=== PATIENT | male | born 1990 | race Caucasian/White ===

== ENCOUNTER 2023-09-04 16:30 | Emergency (ER) | payer OTHER, SELFPAY ==
--- NOTE | ~2023-09-04 | XR_ITS ---
EXAMINATION: XR finger 2nd LT min 2V INDICATION: Right second finger pain and laceration TECHNIQUE: Three views of the right second finger are obtained. COMPARISON: None available FINDINGS: Bone alignment is normal. There is no fracture. The joint spaces are normal. There is soft tissue swelling of the finger. No radiopaque foreign body is identified. IMPRESSION: 1. No acute osseous abnormality. Reviewed, dictated and finalized at location F. ON PICTURE SET WORKER
[2023-09-04 16:31] VITALS: BP 162/114; PULSE 80; RESP 20; TEMP 36.4; O2SAT 99
--- NOTE | 2023-09-04 16:39 | ED.WOUNDLAC ---
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 Tetanus UTD as of a few years ago. Denies numbness/tingling. No other injuries. Related Data Allergies Allergy/AdvReac Type Severity Reaction Status Date / Time red dye Allergy Nausea and Verified 09/04/23 16:31 Vomiting Review of Systems Integumentary/Breasts: Comments: laceration L 2nd digit PMFSH Family History Family History Mother Family history of multiple sclerosis Father Hypertension Asthma Family history of elevated blood lipids Family history of diabetes mellitus in first degree relative Social History Social History Smoking end date: 10/16/12 Exam Const: General: healthy appearing and no acute distress Nutritional Appearance: well nourished Resp: Effort & Inspection: normal respiratory effort Auscultation: clear to auscultation bilaterally Cardio: Rate: regular rate Rhythm: regular rhythm Skin: Wounds: wounds noted (1.5cm laceration to L 2nd finger extensor surface between DIP/PIP joints) Course Vital Signs Vital signs: Vital Signs Temperature 97.6 F 09/04/23 16:31 Pulse Rate 80 09/04/23 16:31 Respiratory Rate 20 09/04/23 16:31 Blood Pressure 162/114 H 09/04/23 16:31 Pulse Oximetry 99 09/04/23 16:31 Oxygen Delivery Room Air 09/04/23 16:31 Temperature 97.6 F 09/04/23 16:31 Pulse Rate 80 09/04/23 16:31 Respiratory Rate 20 09/04/23 16:31 Blood Pressure 162/114 H 09/04/23 16:31 Pulse Oximetry 99 09/04/23 16:31 Oxygen Delivery Room Air 09/04/23 16:31 Procedures Laceration Laceration 1: Date: 09/04/23 Time: 18:00 Site: hand Side (If applicable): left (2nd digit) Size (cm): 1.5 Description: linear Depth: simple, single layer Local Anesthetic: lidocaine 1% Amount of anesthesia used (mL): 5 Pre-repair: wound explored, irrigated and irrigated extensively ====== Skin Level ====== Skin layer closed with: nylon Size (cm): 4-0 Number of sutures: 3 Technique: simple, interrupted ====== Subcutaneous Layer ====== ====== Muscle Layer ====== ====== Tendon Layer ====== MDM - Wound/Laceration MDM Narrative Medical decision making narrative: X-ray negative. Laceration repaired w/o complications. Tetanus UTD. Given wound care instructions and reasons to return. Medical Records Attestation: I reviewed the patient's medical records. Imaging Data Attestation: I personally reviewed and interpreted this imaging study as follows: Radiologist's impression: ITS Impressions Finger X-Ray 09/04/23 16:46 IMPRESSION: 1. No acute osseous abnormality. Discharge Plan Discharge Clinical Impression: Laceration of finger of left hand Qualifiers: Encounter type: initial encounter Finger: index finger Damage to nail status: without damage Foreign body presence: without foreign body Qualified Code(s): S61.211A - Laceration without foreign body of left index finger without damage to nail, initial encounter Patient Disposition: Home, Self-Care Condition: Stable Instructions: Antibiotic Form, Care For Your Stitches (ED), Laceration (ED) Additional Instructions: Return to the ED or visit an urgent care or your PCP for follow-up and wound check/suture removal in 7 days. Keep the wound dry for 24 hours. You may remove the bandage after 24 hours and wash with simple soap and water, but do not scrub. Return to the ED if you experience uncontrol
== END 2023-09-04 18:39 | disposition home or self-care (01) ==
PROVIDERS: Emergency Provider Physician Assistant
DX: S61.211A Laceration without foreign body of left index finger without damage to nail, initial encounter (principal); W29.8XXA Contact with other powered hand tools and household machinery, initial encounter
CPT/HCPCS: 12001; 73140; 99283

== ENCOUNTER 2023-09-27 11:56 | Outpatient (CLI) | payer OTHER, SELFPAY ==
--- NOTE | ~2023-09-27 | XR_ITS ---
Clinical Indication: Chest pain PA and lateral views of the chest: Comparison: None Findings: The lungs are clear, without evidence of focal consolidation or pleural effusion. Cardiome diastinal silhouette is within normal limits. Bones and soft tissues are unremarkable. Impression: Normal chest. Reviewed, dictated and finalized at location . CENTER TRAINER Impression: Normal chest.
== END 2023-09-27 11:57 | disposition home or self-care (01) ==
PROVIDERS: PCP Emergency Medicine; Visit Provider Emergency Medicine
DX: R07.9 Chest pain, unspecified (principal); Z87.891 Personal history of nicotine dependence
CPT/HCPCS: 71046

== ENCOUNTER 2023-10-07 20:50 | Emergency (ER) | payer OTHER, SELFPAY ==
--- NOTE | ~2023-10-07 | XR_ITS ---
XR chest 2V DATE: 10/07/2023 23:57 INDICATION: Chest pain during. History of anxiety. TECHNIQUE: PA and lateral views COMPARISON: 09/27/2023 AP and lateral chest FINDINGS: Normal heart size. No hilar or mediastinal enlargement. No pulmonary infiltrate or consolid ation, pleural effusion or pulmonary vascular congestion or pneumothorax is detected. IMPRESSION: No active cardiopulmonary disease Reviewed, dictated and finalized at location A. PRESS OPERATOR
[2023-10-07 21:34] VITALS: BP 158/96; PULSE 74; RESP 16; TEMP 37; O2SAT 100
--- NOTE | 2023-10-08 00:15 | ECG_ITS ---
Measurements Intervals [place] Rate: 60 P: 62 PA: 161 QRS: 64 QRSD: 86 T: 52 QT: 384 QTc: 386 Interpretive Statements SINUS RHYTHM WITH SINUS ARRHYTHMIA NO PREVIOUS ECG AVAILABLE FOR COMPARISON Electronically Signed On 10-08-2023 17:01:52 FLATBED DRIVER by Mila Duggan M.D.
[2023-10-08 00:28] LABS: Alanine Aminotransferase 52 U/L (6-50); Albumin Level 4.5 g/dL (3.5-5.1); Alkaline Phosphatase 58 U/L (38-126); Anion Gap 10 mmol/L (8-16); Aspartate Amino Transferase 43 U/L (17-59); Bilirubin,Total 0.5 mg/dL (0.2-1.3); Blood Urea Nitrogen 13 mg/dL (9-20); Calcium 9.4 mg/dL (8.4-10.2); Carbon Dioxide 22 mmol/L (22-30); Chloride 105 mmol/L (98-107); Estimated CRCL calculation 193 ml/min; Estimated Glomerular Filt Rate > 60; Glucose 88 mg/dL (65-110); Lipase 35 U/L (23-300); Potassium 3.9 mmol/L (3.4-5.0); Sodium 137 mmol/L (137-145)
[2023-10-08 00:29] LABS: Basophils Percent Auto 0.4 % (0.2-1.2); Eosinophils Absolute Auto 0.2 K/mm3 (0-0.3); Eosinophils Percent Auto 1.5 % (0-4.4); Hemoglobin 12.7 g/dL (14.0-18.0); Immature Granulocyte Absolute 0.02 K/mm3 (0.00-0.031); Immature Granulocyte Percent A 0.2 % (0-0.5); Lymphocytes Absolute Auto 2.99 K/mm3 (0.9-3.2); Lymphocytes Percent Auto 30.4 % (18.3-44.2); Mean Corpuscular HGB Conc 33.4 g/dl (32-36); Mean Corpuscular Hemoglobin 31.1 pg (26-34); Mean Corpuscular Volume 92.9 fl (80-100); Mean Platelet Volume 9.5 fl (7.4-10.4); Monocytes Absolute Auto 0.9 K/mm3 (0.1-0.6); Monocytes Percent Auto 8.8 % (2.6-8.5); Neutrophils Absolute Auto 5.8 K/mm3 (1.3-6.7); Neutrophils Percent Auto 58.7 % (45.5-73.1); Platelet Count Result 256 k/mm3 (150-375); Red Blood Count 4.09 M/mm3 (4.6-6.20); Red Cell Distribution Width 11.7 % (11.5-14.5); White Blood Count 9.8 K/mm3 (4.5-10.0)
[2023-10-08 00:43] LABS: Troponin I < 0.012 ng/mL (0.000-0.034)
--- NOTE | 2023-10-08 00:55 | ED.ANXIETY ---
HPI - Anxiety General Chief Complaint: Anxiety Stated Complaint: anxiety Time Seen by Provider: 10/08/23 00:42 History of Present Illness HPI narrative: Patient is a 32-year-old male who presents emergency department this evening with multiple complaints. Patient states that he has been dealing with anxiety and panic attacks throughout the past week due to stress from work and life and him recently quitting drinking and smoking. Patient states that he has been having episodes of nonspecific chest pain specially when he takes a deep breath. Patient denies any shortness of breath, nausea, vomiting, abdominal pain, dysuria, hematuria, constipation, diarrhea, melena, hematochezia, fevers or chills. Patient also denies any headaches, dizziness, lightheadedness, blurry visions, focal weakness, numbness and or tingling. There are no other modifying, alleviating, or precipitating factors at this time. Related Data Allergies Allergy/AdvReac Type Severity Reaction Status Date / Time red dye Allergy Nausea and Verified 10/08/23 00:14 Vomiting Review of Systems Review of Systems: All systems are reviewed and are negative unless stated otherwise in the HPI. PMFSH Family History Family History Mother Family history of multiple sclerosis Father Hypertension Asthma Family history of elevated blood lipids Family history of diabetes mellitus in first degree relative Social History Social History Smoking end date: 10/16/12 Substance use type: marijuana and other Exam Narrative: General: Alert, awake, afebrile, in no acute distress, anxious. HEENT: PERRL, no rhinorrhea, no post nasal drip, oropharynx clear. Neck: Trachea midline, no JVD, no lymphadenopathy. Cardiovascular: Regular rate and rhythm, no murmurs, rubs or gallops, no peripheral edema. Respiratory: Clear to auscultation bilaterally, no tachypnea, no wheezing, no rhonchi, no rubs, no respiratory distress. Abdomen: Soft, nontender, nondistended, no rebound, no guarding, no peritoneal signs. Musculoskeletal: No joint swelling or deformity, normal muscle tone. Skin: No rashes or petechia, no signs of infection. Psychiatric: Alert and oriented, normal behavior and judgment for situation. Neurological: Alert and oriented to person, place, and time. Follows all commands. No focal deficits, speech is clear and fluent. Course Vital Signs Vital signs: Vital Signs Temperature 98.6 F 10/07/23 21:34 Pulse Rate 74 10/07/23 21:34 Respiratory Rate 16 10/07/23 21:34 Blood Pressure 158/96 H 10/07/23 21:34 Pulse Oximetry 100 10/07/23 21:34 Oxygen Delivery Room Air 10/07/23 21:34 Temperature 98.6 F 10/07/23 21:34 Pulse Rate 74 10/07/23 21:34 Respiratory Rate 16 10/07/23 21:34 Blood Pressure 158/96 H 10/07/23 21:34 Pulse Oximetry 100 10/07/23 21:34 Oxygen Delivery Room Air 10/07/23 21:34 MDM - Anxiety MDM Narrative Medical decision making narrative: The patient was evaluated by myself in the emergency department. History is obtained from patient who is an independent historian and physical exam was performed. External medical records were reviewed at this time. IV was established and pertinent tests were ordered. EKG was obtained which revealed sinus rhythm rate of 60 beats per minute. No ST changes, T wave inversions or evidence of acute ischemia. EKG was independently interpreted by me and is currently pending official cardiology read. Laboratory results obtained revealing no acute process. Imaging studies obtained included CXR which was independently interpreted by me revealing no acute process, which is pending final radiology interpretation. Differential diagnosis considerations include anxiety, panic attack, acute viral syndrome including and COVID and influenza, and pneumonia. Comorbidities
[2023-10-08 01:02] VITALS: PULSE 64; RESP 14; O2SAT 100
[2023-10-08 01:07] LABS: Appearance Urine Clear (Clear); Bilirubin Urine Negative (Negative); Blood Urine Negative (Negative); Color Urine Yellow (Yellow); Glucose Urine UA Negative (Negative); Ketones Urine Negative (Negative); Leukocyte Esterase Ur Negative LEU/UL (Negative); Nitrate Urine Negative (Negative); Protein Urine Negative (Negative); Specific Grav Ur 1.009 (1.001-1.035); Urobilinogen Urine 0.2 mg/dL (<2.0)
[2023-10-08 01:16] LABS: Prothrombin Time 13.2 Seconds (11.1-14.7)
[2023-10-08 01:17] LABS: Partial Thromboplastin Time 27.2 SECONDS (22.3-36.8)
[2023-10-08 01:21] VITALS: PULSE 65; RESP 12; O2SAT 100
[2023-10-08 01:23] LABS: Add Urine Microscopic? NO
[2023-10-08 01:37] VITALS: PULSE 60; RESP 9; O2SAT 100
[2023-10-08 01:45] VITALS: PULSE 67; RESP 13; O2SAT 100
[2023-10-08 02:00] VITALS: RESP 10; O2SAT 100
[2023-10-08 02:15] VITALS: PULSE 63; RESP 14; O2SAT 98
--- NOTE | 2023-10-08 02:20 | PC.NURSE ---
PER EDP DR. MATTHEW, ASPIRIN MEDICATION ORDER COULD BE DISCONTINUED. THIS RN USED CLOSED LOOP COMMUNICATION TO CONFIRM DISCONTINUATION OF ASPIRIN. EDP DR. MATTHEW CONFIRMED.
[2023-10-08 03:08] LABS: Influenza A QL RT-PCR Negative (Negative); Influenza B QL RT-PCR Negative (Negative); SARS-CoV-2 RNA PCR Negative (Negative)
== END 2023-10-08 03:12 | disposition home or self-care (01) ==
PROVIDERS: Emergency Provider Emergency Medicine; PCP Emergency Medicine
DX: F41.9 Anxiety disorder, unspecified (principal)
CPT/HCPCS: 36415; 71046; 80053; 81003; 83690; 84484; 85025; 85610; 85730; 87636; 93005; 99284

== ENCOUNTER 2024-01-01 10:53 | Outpatient (CLI) | payer OTHER, SELFPAY ==
[2024-01-01 12:52] LABS: Basophils Absolute Auto 0.1 K/mm3 (0.0-0.1); Basophils Percent Auto 0.5 % (0.2-1.2); Eosinophils Absolute Auto 0.2 K/mm3 (0-0.3); Eosinophils Percent Auto 2.3 % (0-4.4); Hematocrit 43.4 % (42.0-52.0); Hemoglobin 14.2 g/dL (14.0-18.0); Immature Granulocyte Absolute 0.04 K/mm3 (0.00-0.031); Immature Granulocyte Percent A 0.4 % (0-0.5); Lymphocytes Absolute Auto 2.81 K/mm3 (0.9-3.2); Lymphocytes Percent Auto 27.1 % (18.3-44.2); Mean Corpuscular HGB Conc 32.7 g/dl (32-36); Mean Corpuscular Hemoglobin 30.9 pg (26-34); Mean Corpuscular Volume 94.3 fl (80-100); Mean Platelet Volume 10.7 fl (7.4-10.4); Monocytes Absolute Auto 0.8 K/mm3 (0.1-0.6); Monocytes Percent Auto 7.2 % (2.6-8.5); Neutrophils Absolute Auto 6.5 K/mm3 (1.3-6.7); Neutrophils Percent Auto 62.5 % (45.5-73.1); Platelet Count Result 233 k/mm3 (150-375); Red Cell Distribution Width 12.2 % (11.5-14.5); White Blood Count 10.4 K/mm3 (4.5-10.0)
[2024-01-01 13:12] LABS: Alanine Aminotransferase 47 U/L (6-50); Albumin Level 4.2 g/dL (3.5-5.1); Alkaline Phosphatase 65 U/L (38-126); Anion Gap 4 mmol/L (8-16); Aspartate Amino Transferase 56 U/L (17-59); Bilirubin,Total 0.4 mg/dL (0.2-1.3); Blood Urea Nitrogen 13 mg/dL (9-20); Calcium 9.2 mg/dL (8.4-10.2); Carbon Dioxide 29 mmol/L (22-30); Chloride 106 mmol/L (98-107); Estimated Glomerular Filt Rate > 60; Glucose 92 mg/dL (65-110); Potassium 4.1 mmol/L (3.4-5.0); Sodium 139 mmol/L (137-145)
[2024-01-01 14:10] LABS: Folic Acid 12.3 ng/mL (2.76->20)
== END 2024-01-01 10:54 | disposition home or self-care (01) ==
LOC: ANHGOSHLAB 10:55
PROVIDERS: PCP Internal Medicine; Visit Provider Internal Medicine
DX: R74.8 Abnormal levels of other serum enzymes (principal); D64.9 Anemia, unspecified
CPT/HCPCS: 36415; 80053; 82607; 82728; 82746; 85025

== ENCOUNTER 2024-01-31 11:38 | Outpatient (CLI) | payer OTHER, SELFPAY | END 2024-01-31 11:39 | disposition home or self-care (01) | LOC: ANHGOSHLAB 11:40 | PROVIDERS: PCP Internal Medicine; Visit Provider Internal Medicine | DX: R41.1 Anterograde amnesia (principal); R63.4 Abnormal weight loss | CPT/HCPCS: 36415; 84443 ==

== ENCOUNTER 2024-06-16 01:15 | Emergency (ER) | payer SELFPAY ==
[2024-06-16 01:30] VITALS: BP 152/91; PULSE 78; RESP 18; TEMP 36.9; O2SAT 100
--- NOTE | 2024-06-16 01:48 | PC.NURSE ---
Patient decided not to wait and left without being seen.
== END 2024-06-16 01:50 | disposition left against medical advice (07) ==
LOC: ANHED 02:07
PROVIDERS: PCP Internal Medicine
DX: Z53.21 Procedure and treatment not carried out due to patient leaving prior to being seen by health care provider (principal)
CPT/HCPCS: 99199

== ENCOUNTER 2025-01-02 15:39 | Emergency (ER) | payer OTHER, SELFPAY ==
[2025-01-02 15:41] VITALS: BP 153/87; PULSE 81; RESP 16; TEMP 36.9; O2SAT 98
--- OUTSIDE RECORDS SUMMARY | 2025-01-02 15:45 | XMS_ITS | Clinical Summary ---
Author Organization [facility] Address [address] [address] Care Team Providers Care Braille Coder Name Role Phone Unavailable Primary Care Provider Unavailabl e Source Comments [facility],non-owned Affiliates and Associated Physician Practices is amultiple site organization consisting of ambulatory clinics and hospital sitesin [place], [place], [place] and [place]. This disclosure is being madepursuant to the Care Everywhere program and may not contain all information available regarding this patient. Last updated 18.[facility] Social History Tobacco Use Types Packs/Day Years Used Date Smoking Tobacco: Never Assessed Sex and Gender Information Value Date Recorded Sex Assigned at Not on file Gender Identity Not on file Sexual Orientation Not on file Plan of Treatment Health Maintenance Due Date Last Done Comments HIV SCREENING 2007 HEPATITIS C SCREENING 10/30/2010 DTAP/TDAP/TD VACCINES (1 - Tdap) 2011 HEPATITIS B VACCINE (1 of 3 - 19+ 3-dose series) 2011 COVID-19 VACCINE ( - 2023-2 5 season) 2024 INFLUENZA VACCINE (#1) 2024 DEPRESSION SCREENING 10/16/2024 ZOSTER VACCINE (1 of 2) 2042 HIB VACCINE Aged Out No longer eligi ble based on patient's age to complete this topic HPV VACCINE Aged Out No longer eligi ble based on patient's age to complete this topic MENINGOCOCCAL (Group B) VACC INE SHARED DECISION-MAKING Aged Out No longer eligibl e based on patient's age to complete this topic MENINGOCOCCAL GROUPS A/C/Y/W VACCINE Aged Out No longer eligible b ased on patient's age to complete this topic PNEUMOCOCCAL VACCINE Aged Out No long er eligible based on patient's age to complete this topic
--- OUTSIDE RECORDS SUMMARY | 2025-01-02 15:45 | XMS_ITS | CONTINUITY OF CARE DOCUMENT ---
Author Name marguerite everett Address Unknown Organization [facility] Address [address] [place] [address] Phone [phone] Care Team Providers Care Environmental Change Analyst Name Role Phone Memo Kramer MD Unavailable [phone] LASHAE HOWELL MD Unavailable [phone] LASHAE HOWELL MD Unavailable [phone] PROBLEMS Condition Status Date Provider Notes Depression active Memo Kramer MD Anxiety active Memo Kramer MD (History of) Tobacco abuse active Memo Kramer MD Chest pain-type to be determined active Reese Kramer MD Cardiology examination active Memo Kramer MD ENCOUNTERS Date Type Provider Location Encounter Diag nosis - In-person encounter Office Visit Memo Kramer MD [place] [facility] AnxietyDepression - In-person encounter Office Visit Memo Kramer MD [place] [facility] Cardiology examinationChest pain-type to be determinedTobacco abuse VITAL SIGNS Date Observation Value Provider Body Mass Index (Ratio) 29.02 kg/m2 Bernardo Kramer MD blood pressure, cuff size regular Ja rret blood pressure, diastolic 82 mm[Hg] Ja rret blood pressure, systolic 143 mm[Hg] Jar ret pulse rate 58 /min respiratory rate E&M 12 /min [facility] oxygen saturation, oximetry 98 % weight E&M 214 [lb_av] height E&M 72 [in_i] Hoang weight E&M 226 [lb_av] Eduarda Mendoza g Body Mass Index (Ratio) 30.65 kg/m2 Bernardo Kramer MD blood pressure, diastolic 80 mm[Hg] Christina [facility] blood pressure, systolic 129 mm[Hg] Kimberly [facility] blood pressure, cuff size regular Ja blood pressure, diastolic 80 mm[Hg] rret blood pressure, systolic 129 mm[Hg] [facility] pulse rate 70 /min height E&M 72 [in_i] [facility] respiratory rate E&M 12 /min Hoang oxygen saturation, oximetry 97 % [place] weight E&M 226 [lb_av] [facility] ALLERGIES No Known Drug Allergies RESULTS Date Observation Value Provider Reference Range Interpretation Location 3 alanine aminotransferase (SGPT), serum 40 1/L [facility] 9-46 Normal 3 aspartate aminotransferase (SGOT), serum 21 1/L [facility] 10-40 Normal 3 alkaline phosphatase, serum 59 1/L [facility] 36-130 Normal 3 bilirubin, serum, total 0.6 mg/dL [facility] 0.2-1.2 Normal 3 albumin/globulin ratio, serum 2.2 (calc) [facility] 1.0-2.5 Normal 3 globulins, serum, total 2.2 G/DL (CALC) [facility] 1.9-3.7 Normal 3 albumin, serum 4.8 g/dL [facility] 3.6-5.1 Normal 3 protein, total, serum 7.0 g/dL [facility] 6.1-8.1 Normal 3 calcium, serum 9.8 mg/dL [facility] 8.6-10.3 Normal 3 carbon dioxide, venous blood 28 mmol/L [facility] 20-32 Normal 3 chloride, serum 102 mmol/L [facility] 98-110 Normal 3 potassium, serum 5.0 mmol/L [facility] 3.5-5.3 Normal 3 sodium, serum 137 mmol/L [facility] 135-146 Normal 3 urea nitrogen/creatinine ratio, serum SEE NOTE: (calc) [facility] 6-22 3 creatinine, serum 0.84 mg/dL [facility] 0.60-1.26 Normal 3 urea nitrogen, blood 12 mg/dL [facility] 7-25 Normal 3 blood glucose, random 150 mg/dL [facility] 65-99 High 3 cholesterol, non-HDL, total 125 MG/DL (CALC) [facility] <130 Normal 3 cholesterol/HDL ratio, serum, percent 3.9 (calc) [facility] <5.0 Normal 3 LDL cholesterol, serum 95 MG/DL (CALC) [facility] Normal 3 triglyceride, serum, fasting 209 mg/dL [facility] <150 High 3 HDL cholesterol, serum 43 mg/dL [facility] > OR = 40 Normal 3 cholesterol, serum 168 mg/dL [facility] <200 Normal HISTORY OF MEDICATION USE Medication Status Instructions Dates Provider Indications Com ments trazodone 100 mg tablet active Memo Kramer MD sertraline 50 mg tablet active Memo Kramer MD ergocalciferol (vitamin D2) 1,250 mcg (50,000 unit) capsule active Memo Kramer MD SOCIAL HISTORY Date Observation Value Provider personal history of marijuana use yes Memo Kramer MD alcohol use yes Memo Kramer MD smoking status Current some day smoker Carson razo INSURANCE PROVIDERS Payer name Policy type / Coverage type Deon red alliance party ID [facility] Commercial insurance co [place] [id number] ADVANCE DIRECTIVES Name Date DISCUSSED - NO DECISION MADE TREATMENT PLAN Date Name Performer Cardiology:The Patient was reenc ouraged to stop smoking. Memo Kramer MD Cardiology:stress te st showed <1mm ST depression at peak exercise A symtpomatic at this time Memo Kramer MD Cardiology:Routine s tress to r/o ischemia c heck LP(a), lipid, cmp to evaluate cardiac risk Memo Kramer MD Cardiology:The Patient was reenc ouraged to stop smoking. Memo Kramer MD Date Name LIPID PANEL Complete Echo COMPREHENSIVE METABO LIC PANEL, W/EGFR Lipoprotein (a) LIPID PANEL Stress Routine HISTORY OF PROCEDURES Procedure Date Procedure Name Provider Procedure Notes S tatus EKG Memo Kramer MD completed
--- OUTSIDE RECORDS SUMMARY | 2025-01-02 17:13 | XMS_ITS | Clinical Summary ---
Author Organization [facility] Address [address] [place] [address] Care Team Providers Care Rubber Covering Machine Operator Name Role Phone Unavailable Primary Care Provider Unavailabl e Source Comments [facility],non-owned Affiliates and Associated Physician Practices is amultiple site organization consisting of ambulatory clinics and hospital sitesin [place], [place], [place] and [place]. This disclosure is being madepursuant to the Care Everywhere program and may not contain all information available regarding this patient. Last updated 18.[facility] Social History Tobacco Use Types Packs/Day Years [...]
--- OUTSIDE RECORDS SUMMARY | 2025-01-02 17:13 | XMS_ITS | CONTINUITY OF CARE DOCUMENT ---
Author Name marguerite everett Address Unknown Organization [facility] Address [address] [place] [address] Phone [phone] Care Team Providers Care Soil Science Technical Officer Name Role Phone Memo Kramer MD Unavailable [phone] LASHAE HOWELL MD Unavailable [phone] LASHAE HOWELL MD Unavailable [phone] PROBLEMS Condition Status Date Provider Notes Cardiology examination active Memo Kramer MD Chest pain-type to be determined active Reese Kramer MD Tobacco abuse active Memo Kramer MD Anxiety active Memo Kramer MD (History of) Depression active Memo Kramer MD ENCOUNTERS Date Type Provider Location Encounter Diag nosis - In-person encounter Office Visit Memo Kramer MD [place] [facility] AnxietyDepression - In-person encounter Office Visit Memo Kramer MD [place] [facility] Cardiology examinationChest pain-type to be determinedTobacco [...] mm[Hg] rret blood pressure, systolic 129 mm[Hg] [facility] pulse rate 70 /min height E&M 72 [in_i] [facility] respiratory rate E&M 12 /min [facility] oxygen saturation, oximetry 97 % [facility] weight E&M 226 [lb_av] [facility] ALLERGIES No [...] Policy type / Coverage type Deon red republican ID [facility] Commercial insurance co o[place]ana [id number] ADVANCE DIRECTIVES Name Date DISCUSSED - NO [...]
[2025-01-02] MEDS: KETOROLAC 30 MG/ML VIAL (*BKC) IV PUSH (17:55)
[2025-01-02] MEDS: SODIUM CHLORIDE 0.9% IV 1,000 ML 999 ML IV CONT (17:55)
[2025-01-02] MEDS: diazePAM INJ (*CRX) 10 MG/2 ML SYRINGE 5 MG IV PUSH (17:55)
[2025-01-02] MEDS: MORPHINE SULFATE (*CRX) 4 MG/ML INJ IV PUSH (19:27)
--- NOTE | 2025-01-02 20:03 | ED_ITS ---
HPI - Back Pain/Injury General Chief Complaint: Back Pain/Injury Stated Complaint: Upper back pain-moving counter tops yesterday Time Seen by Provider: 01/02/25 16:55 History of Present Illness HPI Narrative: Patient is a 34-year-old male who presents ER with pain to his neck/shoulders/u pper back. Woke up this morning with this pain has difficulty moving. Mild radiation towards the right shoulder at times. No numbness or tingling in the hands or legs. 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 Related Data Allergies Allergy/AdvReac Type Severity Reaction Status Date / Time red dye Allergy Nausea and Verified 01/02/25 15:40 Vomiting Review of Systems Review of Systems: All systems reviewed & are unremarkable except as noted in HPI and below Constitutional: Constitutional: Reports no additional constitutional complaints Cardiovascular: Cardiovascular: Reports no additional cardiovascular complaints Respiratory: Respiratory: Reports no additional respiratory complaints Musculoskeletal: Musculoskeletal: Reports no additional musculoskeletal complaints [facility] Past Medical History Medical History Anxiety Generalized anxiety disorder Obstructive tonsils and adenoids Family History Family History Mother Family history of multiple sclerosis Father Hypertension Asthma Family history of elevated blood lipids Family history of diabetes mellitus in first degree relative Social History Social History (Updated 11/14/24 @ 14:59 by Josh Nash MA) Smoking packs per day: 0.2 Smoking cigarettes per day: 4.0 Smoking status: Current some day smoker Tobacco type: cigarettes Second hand tobacco smoke exposure: No Smoking end date: 10/16/12 Alcohol intake: current Alcohol use details: every couple weeks Substance use: current Substance use type: marijuana Do You Feel Safe in your Home?: Yes Lack of Transportation: No Lack of Food: Never True Current Housing: I Have Housing Concerned About Future Housing: No Difficulty Paying Gas/Electric Bills: No Difficulty Paying for Meds: No Currently Unemployed: No Education: High School Diploma/GED Difficulty w/ Childcare or Family Care: No Exam Narrative: GENERAL: Well-appearing, well-nourished, and in no acute distress. HEAD: Normocephalic, atraumatic. ENT: Mucous membranes moist. CHEST: Clear to auscultation. No respiratory distress. HEART: Regular rate and rhythm. Normal peripheral pulses. BACK: No midline tenderness the C/T/L-spine. There is paraspinal muscle tenderness bilaterally most notable in your C5, the trapezius musculature, and the medial scapular region. EXTREMITIES: Normal range of motion. No edema. NEURO: Alert and oriented x3. PSYCH: Normal mood and affect. Course Course Emergency Course: Mild improvement with Toradol/Valium, more improvement with morphine. Discharge with anti-inflammatories muscle relaxers. Follow up with PCP for further evaluation. Vital Signs Vital signs: Vital Signs Temperature 98.5 F 01/02/25 15:41 Pulse Rate 81 01/02/25 15:41 Respiratory Rate 16 01/02/25 15:41 Blood Pressure 153/87 H 01/02/25 15:41 Pulse Oximetry 98 01/02/25 15:41 Temperature 98.5 F 01/02/25 15:41 Pulse Rate 81 01/02/25 15:41 Respiratory Rate 16 01/02/25 15:41 Blood Pressure 153/87 H 01/02/25 15:41 Pulse Oximetry 98 01/02/25 15:41 Discharge Plan Discharge Clinical Impression: Acute thoracic myofascial strain, Cramp in muscle Patient Disposition: Home, Self-Care Condition: Stable Instructions: Thoracic Back Strain (ED) Additional Instructions: Please return to the emergency department if you develop severe pain that is not controlled by pain medications or if you are unable to walk because of pain or weakness. Return to the emergency department immediately if you develop fevers, loss of bowel or bladder control (dribbling of urine or having accidents you wouldn't normally have), inability to urinate, numbness of your genital or anal area, or weakness/numbness of your legs or arms as these could all be signs of a serious medical emergency. Patient Language: Macedonian Prescriptions: New cyclobenzaprine 10 mg tablet 10 mg PO TID PRN (Reason: muscle spasm) Qty: 20 0RF naproxen 375 mg tablet 375 mg PO BID Qty: 14 0RF Follow-up/Referrals: Mookie Rehman DO [Primary Care Provider] - 1 Week
== END 2025-01-02 20:19 | disposition home or self-care (01) ==
PROVIDERS: Emergency Provider Emergency Medicine; PCP Internal Medicine
DX: S29.012A Strain of muscle and tendon of back wall of thorax, initial encounter (principal); R25.2 Cramp and spasm; X50.0XXA Overexertion from strenuous movement or load, initial encounter; F41.1 Generalized anxiety disorder; Z87.891 Personal history of nicotine dependence
CPT/HCPCS: 96361; 96374; 96375; 99284; J1885; J2270; J3360; J7030